=== PATIENT | female | born 1950 | race Caucasian/White ===

== ENCOUNTER → 2018-03-21 | Outpatient (CLI) | payer OTHER ==
[~2018-03-21] MED LIST: A-SPAS-S/L0.125 MG SL; CALCITRIOL0.25 MCG PO; D3-5050000 UNIT PO; DIOVAN320 MG PO; FENOFIBRATE134 MG PO; GLUCOPHAGE XR500 MG PO; OMEPRAZOLE20 MG PO; SYNTHROID200 MCG PO
== END | disposition home or self-care (01) ==
LOC: EDSTATUS 07:10 → WOUND MED 09:51 → WOUND CARE 09:51 → EDSTATUS 13:22 → WOUND CARE 03-28 10:02
DX: L97.312 Non-pressure chronic ulcer of right ankle with fat layer exposed (principal)
CPT/HCPCS: 11042; A4554; A4930; A6216

== ENCOUNTER → 2018-03-28 | Outpatient (CLI) | payer OTHER | END | disposition home or self-care (01) | LOC: WOUND MED 10:22 | DX: L97.312 Non-pressure chronic ulcer of right ankle with fat layer exposed (principal) | CPT/HCPCS: 11042; A4554; A4930; A6216; A6219 ==

== ENCOUNTER → 2018-04-04 | Outpatient (CLI) | payer OTHER | END | disposition home or self-care (01) | LOC: WOUND MED 10:00 | DX: E10.622 Type 1 diabetes mellitus with other skin ulcer (principal); L97.812 Non-pressure chronic ulcer of other part of right lower leg with fat layer exposed | CPT/HCPCS: 11042; A4554; A4930; A6216; A6266 ==

== ENCOUNTER → 2018-04-13 | Outpatient (CLI) | payer OTHER | END | disposition home or self-care (01) | LOC: WOUND MED 09:56 | DX: E10.622 Type 1 diabetes mellitus with other skin ulcer (principal); L97.812 Non-pressure chronic ulcer of other part of right lower leg with fat layer exposed | CPT/HCPCS: G0463; A4554; A4930; A6216 ==

== ENCOUNTER → 2018-09-28 | Outpatient (CLI) | payer OTHER | END | disposition home or self-care (01) | LOC: WOUND MED 08:55 | DX: L97.312 Non-pressure chronic ulcer of right ankle with fat layer exposed (principal) | CPT/HCPCS: 11042; A4554; A4930; A6216; A6219; G0463 ==

== ENCOUNTER → 2018-10-05 | Outpatient (CLI) | payer OTHER | END | disposition home or self-care (01) | LOC: WOUND MED 09:33 | DX: L97.312 Non-pressure chronic ulcer of right ankle with fat layer exposed (principal) | CPT/HCPCS: 11042; A4554; A4930; A6216; A6219 ==

== ENCOUNTER → 2018-10-12 | Outpatient (CLI) | payer OTHER | END | disposition home or self-care (01) | LOC: WOUND MED 10:13 | DX: L97.312 Non-pressure chronic ulcer of right ankle with fat layer exposed (principal) | CPT/HCPCS: 97602; A4554; A4930; A6216; A6219 ==

== ENCOUNTER → 2018-10-19 | Outpatient (CLI) | payer OTHER | END | disposition home or self-care (01) | LOC: WOUND MED 11:26 | DX: L97.312 Non-pressure chronic ulcer of right ankle with fat layer exposed (principal) | CPT/HCPCS: G0463; A4554; A4930; A6216 ==

== ENCOUNTER → 2018-10-26 | Outpatient (CLI) | payer OTHER | END | disposition home or self-care (01) | LOC: WOUND MED 09:31 | DX: L97.312 Non-pressure chronic ulcer of right ankle with fat layer exposed (principal) | CPT/HCPCS: G0463; A4554; A4930; A6216; A6219 ==

== ENCOUNTER → 2018-11-02 | Outpatient (CLI) | payer OTHER | END | disposition home or self-care (01) | LOC: WOUND MED 09:49 | DX: L97.312 Non-pressure chronic ulcer of right ankle with fat layer exposed (principal) | CPT/HCPCS: G0463; A4554; A4930; A6216 ==

== ENCOUNTER → 2019-01-30 | Outpatient (CLI) | payer OTHER | END | disposition home or self-care (01) | LOC: WOUND MED 09:37 | DX: L97.812 Non-pressure chronic ulcer of other part of right lower leg with fat layer exposed (principal) | CPT/HCPCS: 11042; G0463; A4554; A4930; A6196; A6216; A6266 ==

== ENCOUNTER → 2019-02-08 | Outpatient (CLI) | payer OTHER | END | disposition home or self-care (01) | LOC: WOUND MED 07:30 | DX: L97.812 Non-pressure chronic ulcer of other part of right lower leg with fat layer exposed (principal) | CPT/HCPCS: 11042; A4554; A4930; A6212; A6216; A6266 ==

== ENCOUNTER → 2019-02-15 | Outpatient (CLI) | payer OTHER | END | disposition home or self-care (01) | LOC: WOUND MED 08:45 | DX: L97.812 Non-pressure chronic ulcer of other part of right lower leg with fat layer exposed (principal) | CPT/HCPCS: 11042; A4554; A4930; A6212; A6216; A6219 ==

== ENCOUNTER → 2019-02-23 | Outpatient (CLI) | payer OTHER | END | disposition home or self-care (01) | LOC: WOUND MED 10:15 | DX: L97.812 Non-pressure chronic ulcer of other part of right lower leg with fat layer exposed (principal) | CPT/HCPCS: A4554; A4930; A6216; G0463 ==

== ENCOUNTER 2022-05-13 10:23 | Outpatient (CLI) | payer OTHER | END 2022-05-13 12:48 | disposition home or self-care (01) | LOC: WOUND MED 10:23 | PROVIDERS: ATTEND Specialist | DX: L97.112 Non-pressure chronic ulcer of right thigh with fat layer exposed (principal); I73.9 Peripheral vascular disease, unspecified | CPT/HCPCS: 11042; A4927; A6219; A6223 ==

== ENCOUNTER 2022-05-20 09:35 | Outpatient (CLI) | payer OTHER | END 2022-05-20 13:25 | disposition home or self-care (01) | LOC: WOUND MED 09:35 | PROVIDERS: ATTEND Specialist | DX: L97.812 Non-pressure chronic ulcer of other part of right lower leg with fat layer exposed (principal) | CPT/HCPCS: 97602; A4927; A6219; A6223 ==

== ENCOUNTER 2022-06-17 09:49 | Outpatient (CLI) | payer OTHER | END 2022-06-17 12:47 | disposition home or self-care (01) | LOC: WOUND MED 09:49 | PROVIDERS: ATTEND Specialist | DX: L97.818 Non-pressure chronic ulcer of other part of right lower leg with other specified severity (principal) | CPT/HCPCS: A4927; A6223; G0463 ==